=== PATIENT | male | born 1995 | race Caucasian/White ===

== ENCOUNTER 2020-12-28 19:06 | Emergency (ER) | payer OTHER ==
[~2020-12-28] VITALS: Ht 175.3 cm; Wt 100.0 kg
[2020-12-28] MEDS ORDERED: IBUPROFEN 600MG TABLET PO ONE (19:45)
[2020-12-28 21:37] VITALS: BP 151/81
== END 2020-12-28 21:45 | disposition home or self-care (01) ==
LOC: ER 19:06
DX: R51.9 Headache, unspecified (principal); M25.512 Pain in left shoulder; M54.5 Low back pain; V49.49XA Driver injured in collision with other motor vehicles in traffic accident, initial encounter; Y93.89 Activity, other specified; Y92.488 Other paved roadways as the place of occurrence of the external cause; R03.0 Elevated blood-pressure reading, without diagnosis of hypertension
CPT/HCPCS: 72100; 73000; 73030; 99284